=== PATIENT | male | born 1940 | race Caucasian/White ===

== ENCOUNTER 2016-09-04 09:35 | Emergency (ER) | payer OTHER ==
[~2016-09-04] VITALS: Ht 167.6 cm; Wt 71.7 kg
[~2016-09-04 09:35] MED LIST: AMLO5TAB2 PO; ASPI81TA27 PO; ATOR10TA52 PO; ERGO1CAP6 PO; PEN400T PO
[2016-09-04 11:36] VITALS: BP 127/71
== END 2016-09-04 12:05 | disposition home or self-care (01) ==
LOC: ER 09:52
DX: R33.9 Retention of urine, unspecified (principal); I11.0 Hypertensive heart disease with heart failure; I50.9 Heart failure, unspecified; J44.9 Chronic obstructive pulmonary disease, unspecified; Z86.73 Personal history of transient ischemic attack (TIA), and cerebral infarction without residual deficits; Z87.891 Personal history of nicotine dependence; Z98.61 Coronary angioplasty status
CPT/HCPCS: 51702; 81002

== ENCOUNTER 2017-12-08 12:26 | Emergency (ER) | payer OTHER ==
[~2017-12-08] VITALS: Ht 170.2 cm; Wt 72.6 kg
[~2017-12-08 12:26] MED LIST changes: +AML5T PO; -AMLO5TAB2 PO; +FURO20TA PO; +METO25TA62 PO; +TAMS0.4C36 PO
[2017-12-08 13:05] VITALS: BP 121/71
[2017-12-08 13:06] LABS: Urine WBC None Seen /hpf (0 - 3)
[2017-12-08 13:52] LABS: Urine Bacteria NONE SEEN /hpf (None Seen); Urine Blood TRACE /uL (Negative); Urine Specific Gravity 1.004 (1.001-1.035)
== END 2017-12-08 15:07 | disposition home or self-care (01) ==
LOC: ER 12:26 → EDBD 12:26 → ER 15:07
DX: R33.9 Retention of urine, unspecified (principal); I25.10 Atherosclerotic heart disease of native coronary artery without angina pectoris; I13.2 Hypertensive heart and chronic kidney disease with heart failure and with stage 5 chronic kidney disease, or end stage renal disease; I50.9 Heart failure, unspecified; N18.6 End stage renal disease; E78.5 Hyperlipidemia, unspecified; J44.9 Chronic obstructive pulmonary disease, unspecified; Z79.899 Other long term (current) drug therapy; Z98.61 Coronary angioplasty status; Z87.891 Personal history of nicotine dependence
CPT/HCPCS: 51702; 81001

== ENCOUNTER 2019-08-03 15:48 | Emergency (ER) | payer OTHER ==
[~2019-08-03] VITALS: Ht 167.6 cm; Wt 68.0 kg
[~2019-08-03 15:48] MED LIST changes: +ASPI-404 PO; -ASPI81TA27 PO; +FURO1TAB33 PO; -FURO20TA PO; -METO25TA62 PO; +METO25TA93 PO
[2019-08-03 16:27] LABS: Urine Bacteria NONE SEEN /hpf (None Seen); Urine Blood TRACE /uL (Negative); Urine Hyaline Cast FEW /lpf (0 - 2); Urine Specific Gravity 1.009 (1.001-1.035); Urine WBC <1 /hpf (0 - 3)
[2019-08-03 17:25] VITALS: BP 155/84
== END 2019-08-03 17:26 | disposition home or self-care (01) ==
LOC: ER 15:48
DX: R33.9 Retention of urine, unspecified (principal); J44.9 Chronic obstructive pulmonary disease, unspecified; E78.5 Hyperlipidemia, unspecified; E11.22 Type 2 diabetes mellitus with diabetic chronic kidney disease; I13.2 Hypertensive heart and chronic kidney disease with heart failure and with stage 5 chronic kidney disease, or end stage renal disease; N18.6 End stage renal disease; Z87.891 Personal history of nicotine dependence; Z98.61 Coronary angioplasty status
CPT/HCPCS: 51702; 81001

== ENCOUNTER 2020-07-10 08:58 | Inpatient (IN) | payer OTHER ==
[2020-07-10] VITALS (14 sets, daily range): BP systolic 90–134; BP diastolic 42–74
[~2020-07-10] VITALS: Ht 167.6 cm; Wt 71.6 kg
[~2020-07-10 08:58] MED LIST changes: -ASPI-404 PO; +ASPI-543 PO
[2020-07-10 09:42] LABS: Basophils # (auto) 0.1 10 ^3/uL (0-0.2); Basophils % (auto) 0.6 % (0.0-2.0); Eosinophils # (auto) 0 10 ^3/uL (0-0.8); Eosinophils % (auto) 0.1 % (0.0-7.0); Hematocrit 37.6 % (41.0-53.0); Hemoglobin 12.3 g/dL (13.5-17.5); Lymphocytes # (auto) 0.2 10 ^3/uL (0.4-5.4); Lymphocytes % (auto) 1.2 % (10.0-50.0); Mean Corpuscular Hemoglobin 30.6 pg (28.0-32.0); Mean Corpuscular Hgb Conc. 32.7 g/dL (32.0-36.0); Mean Corpuscular Volume 93.7 fL (80.0-100.0); Monocytes % (auto) 6.7 % (0.0-12.0); Neutrophils # (auto) 13.7 10 ^3/uL (1.6-8.6); Neutrophils % (auto) 91.4 % (37.0-80.0); Platelet Count (auto) 314 10^3/uL (140-450); Red Blood Cells 4.01 10^6/uL (4.5-5.90); Red Cell Distribution Width 15.8 % (11.8-14.3); White Blood Cell 14.9 10^3/uL (4.4-10.8)
[2020-07-10 09:57] LABS: INR 1.1 (0.9-1.15); Partial Thromboplastin Time 24.8 sec (23.0-31.2)
[2020-07-10 10:09] LABS: Albumin 3.6 g/dL (3.4-5.0); Calcium 8.9 mg/dL (8.5-10.1); Magnesium 2.1 mg/dL (1.6-2.6); Potassium 4.1 mmol/L (3.5-5.1)
[2020-07-10 10:16] LABS: BUN/Creatinine Ratio 6.4; Bilirubin, Total 0.4 mg/dL (0.2-1.0); Total Protein 7.6 g/dL (6.4-8.2)
[2020-07-10] MEDS ORDERED: ONDANSETRON HCL 4 MG/2 ML VIAL IV ONE (10:45)
[2020-07-10] MEDS ORDERED: MORPHINE SULFATE 4 MG/ML SYR/VIAL IV ONE (10:45)
[2020-07-10] MEDS ORDERED: ENOXAPARIN SOD 80 MG/0.8ML SYRINGE SC ONE (10:45)
[2020-07-10] MEDS ORDERED: HYDROcodone-ACET 5/325MG TAB PO PRN (12:15)
[2020-07-10] MEDS ORDERED: ONDANSETRON HCL 4 MG/2 ML VIAL IV PRN (12:15)
[2020-07-10] MEDS ORDERED: DOXYCYCLINE 100MG/250ML 250 ML IV ONE (12:15)
[2020-07-10] MEDS ORDERED: ACETAMINOPHEN 325 MG TAB PO PRN (12:15)
[2020-07-10] MEDS ORDERED: hydrALAZINE HCL 20 MG/ML VL IV PRN (12:15)
[2020-07-10] MEDS ORDERED: CLOPIDOGREL BISULFATE 75 MG TAB PO ONE (12:30)
[2020-07-10] MEDS ORDERED: HEPARIN DRIP/D5W 100UNITS/ML 250 ML IV SCH (12:30)
[2020-07-10 13:12] LABS: Free T4 (Free Thyroxine) 1.57 ng/dL (0.89-1.76)
[2020-07-10 13:13] LABS: Free T3 2.68 pg/mL (2.3-4.2)
[2020-07-10] MEDS ORDERED: IODIXANOL 320MG/ML 100ML BTL IV ONE ×3 (15:15→16:27)
[2020-07-10] MEDS ORDERED: LIDOCAINE 2%HCL (LOCAL ANESTH.) INJ 20ML MDV ONE (15:15)
[2020-07-10] MEDS ORDERED: MIDAZOLAM HCL 1MG/1ML-2 ML VIAL ONE (15:33)
[2020-07-10] MEDS ORDERED: fentaNYL CITRATE 100 MCG/2 ML VL ONE (15:33)
[2020-07-10] MEDS ORDERED: SODIUM CHL 0.9% 50 ML ONE (15:34)
[2020-07-10] MEDS ORDERED: ANGIOMAX 250 MG VIAL IV ONE (15:34)
[2020-07-10] MEDS ORDERED: VERAPAMIL 2.5MG/ML INJ 2ML VIAL IV ONE (16:05)
[2020-07-10] MEDS ORDERED: HEPARIN SODIUM (PORCINE) 5000 UNITS/ML 1ML VIAL ONE (16:05)
[2020-07-10] MEDS ORDERED: TICAGRELOR 90 MG TAB ONE (16:44)
[2020-07-10] MEDS ORDERED: CLOPIDOGREL 300 MG TAB ONE (16:48)
[2020-07-10] MEDS: ATORVASTATIN 20 MG TAB PO SCH (18:00)
[2020-07-10 19:09] LABS: Urine Bacteria NONE SEEN /hpf (None Seen); Urine Blood 2+ /uL (Negative); Urine Specific Gravity 1.017 (1.001-1.035); Urine WBC <1 /hpf (0 - 3)
[2020-07-10] MEDS ORDERED: TEMAZEPAM 15 MG CAP PO PRN (20:15)
[2020-07-10 20:33] LABS: INR 1.44 (0.9-1.15)
[2020-07-10 20:47] LABS: Partial Thromboplastin Time 71.4 sec (23.0-31.2)
[2020-07-11] VITALS (19 sets, daily range): BP systolic 84–121; BP diastolic 46–69
[2020-07-11 02:32] LABS: INR 1.2 (0.9-1.15); Partial Thromboplastin Time 39.8 sec (23.0-31.2)
[2020-07-11] MEDS ORDERED: SODIUM CHL 0.9% 1000 ML BAG XX ONE (07:00)
[2020-07-11 07:12] LABS: Basophils # (auto) 0.1 10 ^3/uL (0-0.2); Basophils % (auto) 0.7 % (0.0-2.0); Eosinophils # (auto) 0.2 10 ^3/uL (0-0.8); Eosinophils % (auto) 1.5 % (0.0-7.0); Hematocrit 32.4 % (41.0-53.0); Hemoglobin 10.7 g/dL (13.5-17.5); Lymphocytes # (auto) 1.1 10 ^3/uL (0.4-5.4); Lymphocytes % (auto) 10.3 % (10.0-50.0); Mean Corpuscular Hemoglobin 31.1 pg (28.0-32.0); Mean Corpuscular Hgb Conc. 33.1 g/dL (32.0-36.0); Monocytes # (auto) 1.4 10 ^3/uL (0-1.3); Monocytes % (auto) 12.7 % (0.0-12.0); Neutrophils # (auto) 8.3 10 ^3/uL (1.6-8.6); Neutrophils % (auto) 74.8 % (37.0-80.0); Nucleated Red Blood Cells % 0.1 %; Platelet Count (auto) 303 10^3/uL (140-450); Red Blood Cells 3.45 10^6/uL (4.5-5.90); Red Cell Distribution Width 15.8 % (11.8-14.3)
[2020-07-11 07:29] LABS: Albumin 3.1 g/dL (3.4-5.0); Calcium 8.9 mg/dL (8.5-10.1); Potassium 4.3 mmol/L (3.5-5.1)
[2020-07-11 07:36] LABS: BUN/Creatinine Ratio 7.1; Bilirubin, Total 0.4 mg/dL (0.2-1.0); Phosphorus 6.3 mg/dL (2.5-4.90); Total Protein 6.8 g/dL (6.4-8.2)
[2020-07-11] MEDS ORDERED: ASPirin 81 mg TAB PO SCH (10:00)
[2020-07-11] MEDS ORDERED: PIPERACILLIN-TAZOB 2.25GM 50 ML IV SCH (10:00)
[2020-07-11] MEDS: CLOPIDOGREL BISULFATE 75 MG TAB PO SCH (11:58)
[2020-07-11] MEDS ORDERED: METOPROLOL TARTRATE 1MG/1ML-5ML VIAL IV ONE (12:45)
[2020-07-11] MEDS ORDERED: AMIODARONE HCL 150 MG in D5W 5% 100 ML IV ONE (13:00)
[2020-07-11] MEDS ORDERED: FIN5T PO (13:10)
[2020-07-11] MEDS: FINASTERIDE 5 MG TAB PO SCH (14:18)
[2020-07-11] MEDS: CEFTRIAXONE SODIUM 2 GM in D5W 5% 50 ML IV SCH (14:18)
[2020-07-11] MEDS: CARVEDILOL 3.125 MG TAB PO SCH ×2 (17:23→21:41)
[2020-07-11] MEDS: ATORVASTATIN 20 MG TAB PO SCH (17:23)
[2020-07-11] MEDS ORDERED: TAMSULOSIN HYDROCHLORIDE 0.4 MG CAP PO SCH (18:00)
[2020-07-11] MEDS ORDERED: SODIUM CHLORIDE 0.9% 1,000 ML IV SCH (21:45)
[2020-07-12 05:00] VITALS: BP 94/63
[2020-07-12 05:37] LABS: Hematocrit 31.7 % (41.0-53.0); Hemoglobin 10.6 g/dL (13.5-17.5); Mean Corpuscular Hemoglobin 31.3 pg (28.0-32.0); Mean Corpuscular Hgb Conc. 33.3 g/dL (32.0-36.0); Mean Corpuscular Volume 94.1 fL (80.0-100.0); Platelet Count (auto) 298 10^3/uL (140-450); Red Blood Cells 3.37 10^6/uL (4.5-5.90); Red Cell Distribution Width 16.1 % (11.8-14.3); White Blood Cell 7.7 10^3/uL (4.4-10.8)
[2020-07-12 05:43] LABS: BUN/Creatinine Ratio 7.6; Calcium 8.2 mg/dL (8.5-10.1); Potassium 4.2 mmol/L (3.5-5.1)
[2020-07-12 06:03] LABS: Basophils % (manual) 0 (0.0-2.0); Blast Cells 0; Metamyelocytes % 0; Myelocytes % 0; Promyelocytes % 0; Reactive Lymphocytes 0
[2020-07-12 07:01] LABS: Band Neutrophils % (manual) 5; Eosinophils % (manual) 3 (0-7); Lymphocytes % (manual) 19 (10.0-50.0); Monocytes % (manual) 11 (0-12)
[2020-07-12] MEDS ORDERED: APIXABAN 2.5 MG TAB PO SCH (08:00)
[2020-07-12 08:47] VITALS: BP 102/65
[2020-07-12] MEDS: CARVEDILOL 3.125 MG TAB PO SCH (08:48)
[2020-07-12] MEDS: CLOPIDOGREL BISULFATE 75 MG TAB PO SCH (08:50)
[2020-07-12] MEDS: FINASTERIDE 5 MG TAB PO SCH (08:50)
[2020-07-12] MEDS: CEFTRIAXONE SODIUM 2 GM in D5W 5% 50 ML IV SCH (09:53)
[2020-07-12 13:00] VITALS: BP 103/70
[2020-07-12] MEDS ORDERED: CLOP75TA28 PO (14:26)
[2020-07-12] MEDS ORDERED: APIX2.5T PO (14:26)
[2020-07-12] MEDS ORDERED: FURO1TAB33 PO (14:26)
[2020-07-12] MEDS ORDERED: CAR3125T PO (14:26)
[2020-07-12] MEDS ORDERED: ATOR20TA50 PO (14:26)
[2020-07-14 15:22] LABS: Hepatitis A Ab IgM Negative; Hepatitis B Core IgM Negative; Hepatitis B Surface Antigen Negative (Negative); Hepatitis C Antibody Negative (Negative)
== END 2020-07-12 15:38 | disposition left against medical advice (07) | DRG 246 ==
LOC: ER 08:58 → EDBD 08:58 → TELE 12:40 → DOU IN ICU 14:00 → WEST WING 07-11 16:06
PROVIDERS: ADMIT Internal Medicine; ATTEND Internal Medicine
PROC: 027034Z Dilation of Coronary Artery, One Artery with Drug-eluting Intraluminal Device, Percutaneous Approach (ICD-10-PCS; principal; 2020-07-10)
PROC: 4A023N7 Measurement of Cardiac Sampling and Pressure, Left Heart, Percutaneous Approach (ICD-10-PCS; 2020-07-10)
PROC: B2111ZZ Fluoroscopy of Multiple Coronary Arteries using Low Osmolar Contrast (ICD-10-PCS; 2020-07-10)
PROC: B2151ZZ Fluoroscopy of Left Heart using Low Osmolar Contrast (ICD-10-PCS; 2020-07-10)
PROC: 5A1D70Z Performance of Urinary Filtration, Intermittent, Less than 6 Hours Per Day (ICD-10-PCS; 2020-07-10)
DX: I21.4 Non-ST elevation (NSTEMI) myocardial infarction (principal); N18.6 End stage renal disease; I13.2 Hypertensive heart and chronic kidney disease with heart failure and with stage 5 chronic kidney disease, or end stage renal disease; R78.81 Bacteremia; I48.92 Unspecified atrial flutter; I25.10 Atherosclerotic heart disease of native coronary artery without angina pectoris; I73.9 Peripheral vascular disease, unspecified; J44.9 Chronic obstructive pulmonary disease, unspecified; Z20.822 Contact with and (suspected) exposure to COVID-19; D63.8 Anemia in other chronic diseases classified elsewhere; Z53.29 Procedure and treatment not carried out because of patient's decision for other reasons; B96.89 Other specified bacterial agents as the cause of diseases classified elsewhere; E78.5 Hyperlipidemia, unspecified; I48.91 Unspecified atrial fibrillation; G47.00 Insomnia, unspecified; I50.9 Heart failure, unspecified; N40.0 Benign prostatic hyperplasia without lower urinary tract symptoms; Z80.0 Family history of malignant neoplasm of digestive organs; Z82.49 Family history of ischemic heart disease and other diseases of the circulatory system; Z87.891 Personal history of nicotine dependence; Z99.2 Dependence on renal dialysis; Z99.81 Dependence on supplemental oxygen; Z79.899 Other long term (current) drug therapy
CPT/HCPCS: 36415; 71045; 74176; 80048; 80053; 80061; 80074; 81001; 83605; 83735; 83880; 84100; 84439; 84443; 84481; 84484; 85007; 85025; 85027; 85610; 85730; 87040; 87077; 87081; 87086; 87186; 87426; 90935; 92928; 93005; 93458; 96365; 96372; 96375; 99152; 99153; 99291; C1874; G0378; J0696; J2250; J2405; J2543; J3490; J7060; Q9967

== ENCOUNTER 2020-09-09 06:13 | Day surgery (SDC) | payer OTHER ==
[~2020-09-09] VITALS: Ht 167.6 cm; Wt 72.6 kg
[~2020-09-09 06:13] MED LIST changes: -AML5T PO; +APIX2.5T PO; -ASPI-543 PO; -ATOR10TA52 PO; +ATOR20TA PO; +CAR3125T PO; +CARV12.544 PO; +CLOP75TA28 PO; -ERGO1CAP6 PO; +FINA5TAB4 PO; -FURO1TAB33 PO; +FURO20TA3 PO; -METO25TA93 PO; -PEN400T PO; +TRAZ50TA2 PO
[2020-09-09] MEDS ORDERED: IODIXANOL 320MG/ML 100ML BTL IV ONE (07:16)
[2020-09-09] MEDS ORDERED: LIDOCAINE 2%HCL (LOCAL ANESTH.) INJ 20ML MDV ONE (07:16)
[2020-09-09] MEDS ORDERED: ANGIOMAX 250 MG VIAL IV ONE (07:34)
[2020-09-09] MEDS ORDERED: VERAPAMIL 2.5MG/ML INJ 2ML VIAL IV ONE (07:34)
[2020-09-09] MEDS ORDERED: SODIUM CHL 0.9% 150 ML ONE (07:35)
[2020-09-09] MEDS ORDERED: NITROGLYCERIN 5MG/ML 10ML VIAL IV ONE (07:35)
[2020-09-09] MEDS ORDERED: fentaNYL CITRATE 100 MCG/2 ML VL ONE (07:35)
[2020-09-09] MEDS ORDERED: MIDAZOLAM HCL 1MG/1ML-2 ML VIAL ONE (07:35)
[2020-09-09] MEDS ORDERED: HYDROcodone-ACET 5/325MG TAB PO PRN (09:00)
[2020-09-09] MEDS ORDERED: ACETAMINOPHEN 500 MG TAB PO PRN (09:00)
== END 2020-09-09 11:58 | disposition home or self-care (01) ==
LOC: CATH 06:13
PROVIDERS: ATTEND Internal Medicine
DX: I25.10 Atherosclerotic heart disease of native coronary artery without angina pectoris (principal); E78.5 Hyperlipidemia, unspecified; I25.2 Old myocardial infarction; J43.9 Emphysema, unspecified; I13.2 Hypertensive heart and chronic kidney disease with heart failure and with stage 5 chronic kidney disease, or end stage renal disease; N18.6 End stage renal disease; Z20.822 Contact with and (suspected) exposure to COVID-19; Z98.890 Other specified postprocedural states; Z87.891 Personal history of nicotine dependence; Z79.899 Other long term (current) drug therapy; Z95.5 Presence of coronary angioplasty implant and graft; Z99.2 Dependence on renal dialysis
CPT/HCPCS: 92920; 93005; 93458; 93571; C1725; C1769; C1887; C1894; J0583; J1644; J2250; J3010; J3490; J7030; Q9967; U0003; 99152

== ENCOUNTER 2021-03-21 21:29 | Inpatient (IN) | payer MEDICARE, MEDICAID ==
[~2021-03-21] VITALS: Ht 172.7 cm; Wt 61.9 kg
[~2021-03-21 21:29] MED LIST changes: +ACET325T10 PO; +ALBU108A5 PO; +CALC667C PO; +CAR125T PO; -CAR3125T PO; -CARV12.544 PO; +HYDR-4833 PO; +IPRAAER6 INH; +METO25TA93 PO; +SERT50TA19 PO; +SODI10PA PO; -TRAZ50TA2 PO
[2021-03-21 23:43] LABS: Basophils # (auto) 0 10 ^3/uL (0-0.2); Basophils % (auto) 0.6 % (0.0-2.0); Eosinophils # (auto) 0 10 ^3/uL (0-0.8); Eosinophils % (auto) 0.6 % (0.0-7.0); Hematocrit 31.9 % (41.0-53.0); Hemoglobin 10.4 g/dL (13.5-17.5); Lymphocytes # (auto) 0.4 10 ^3/uL (0.4-5.4); Mean Corpuscular Hemoglobin 29.6 pg (28.0-32.0); Mean Corpuscular Hgb Conc. 32.5 g/dL (32.0-36.0); Mean Corpuscular Volume 90.9 fL (80.0-100.0); Monocytes # (auto) 0.8 10 ^3/uL (0-1.3); Monocytes % (auto) 11.9 % (0.0-12.0); Neutrophils # (auto) 5.6 10 ^3/uL (1.6-8.6); Neutrophils % (auto) 80.9 % (37.0-80.0); Nucleated Red Blood Cells % 0.4 %; Red Blood Cells 3.51 10^6/uL (4.5-5.90); Red Cell Distribution Width 16.8 % (11.8-14.3); White Blood Cell 6.9 10^3/uL (4.4-10.8)
[2021-03-22 00:03] LABS: Albumin 3.4 g/dL (3.4-5.0); Potassium 3.5 mmol/L (3.5-5.1)
[2021-03-22 00:07] LABS: BUN/Creatinine Ratio 8.1; Bilirubin, Total 1.4 mg/dL (0.2-1.0); Total Protein 5.9 g/dL (6.4-8.2)
[2021-03-22] MEDS ORDERED: ONDANSETRON HCL 4 MG/2 ML VIAL IV PRN (04:00)
[2021-03-22] MEDS ORDERED: DOCUSATE SOD 100 MG CAP PO PRN (04:00)
[2021-03-22] MEDS ORDERED: ACETAMINOPHEN 325 MG TAB PO PRN (04:00)
[2021-03-22] MEDS ORDERED: NITROGLYCERIN 0.4 MG SL TAB SL PRN (04:45)
[2021-03-22] MEDS ORDERED: MORPHINE SULFATE INJECTION 2 MG/ML SYRG IV PRN (04:45)
[2021-03-22] MEDS ORDERED: ALBUTEROL SULF HFA 90MCG INH 200DOSE IN SCH (06:00)
[2021-03-22] MEDS ORDERED: IPRATROPIUM-ALBUTEROL 20mCg/100mCg INHALER IN SCH (06:00)
[2021-03-22] MEDS ORDERED: CALCIUM ACETATE 667 MG CAP PO SCH (06:00)
[2021-03-22] MEDS: SODIUM CHLOR 0.9% PF (SALINE LOCK) 10ML VIAL/SYR IV SCH ×2 (06:20→14:15)
[2021-03-22] MEDS: B-COMPLEX W/ C & FOLIC ACID(NEPHROVITE TAB) PO SCH (09:39)
[2021-03-22] MEDS: FAMOTIDINE (10MG/ML) 2ML VL IV SCH (09:39)
[2021-03-22] MEDS: ZINC SULFATE 220mg CAP or TAB PO SCH (09:40)
[2021-03-22] MEDS: ASCORBIC ACID 500 MG TAB PO SCH (09:40)
[2021-03-22] MEDS: FUROSEMIDE 20 MG TAB PO SCH (09:40)
[2021-03-22] MEDS: CARVEDILOL 12.5 MG TAB PO SCH ×2 (09:40→22:00)
[2021-03-22] MEDS: TAMSULOSIN HYDROCHLORIDE 0.4 MG CAP PO SCH (09:41)
[2021-03-22] MEDS: FINASTERIDE 5 MG TAB PO SCH (09:41)
[2021-03-22] MEDS: APIXABAN 2.5 MG TAB PO SCH (09:41)
[2021-03-22] MEDS: HYDROcodone-ACET 5/325MG TAB PO PRN ×2 (09:41→16:03)
[2021-03-22] MEDS ORDERED: IPRATROPIUM BROM 0.5 MG/2.5ML INH SOL NEB PRN (14:15)
[2021-03-22] MEDS ORDERED: ALBUTEROL SULF 2.5 MG/0.5ML(0.5%) NEB SOLN NEB PRN (14:15)
[2021-03-22] MEDS: CALCIUM ACETATE 667 MG CAP PO SCH (15:08)
[2021-03-22 20:22] VITALS: BP 121/67
[2021-03-22 21:48] VITALS: BP 125/61
[2021-03-23] MEDS: TAMSULOSIN HYDROCHLORIDE 0.4 MG CAP PO SCH ×3 (00:26→22:40)
[2021-03-23] MEDS: SODIUM CHLOR 0.9% PF (SALINE LOCK) 10ML VIAL/SYR IV SCH ×4 (00:26→22:43)
[2021-03-23] MEDS: APIXABAN 2.5 MG TAB PO SCH ×3 (00:26→22:41)
[2021-03-23] MEDS: ATORVASTATIN 20 MG TAB PO SCH ×2 (00:27→22:41)
[2021-03-23] MEDS: CALCIUM ACETATE 667 MG CAP PO SCH ×4 (00:27→22:40)
[2021-03-23] MEDS: ASCORBIC ACID 500 MG TAB PO SCH ×3 (00:27→22:40)
[2021-03-23 05:14] VITALS: BP 129/67
[2021-03-23 07:58] LABS: Basophils # (auto) 0 10 ^3/uL (0-0.2); Basophils % (auto) 0.3 % (0.0-2.0); Eosinophils # (auto) 0.1 10 ^3/uL (0-0.8); Hematocrit 29.1 % (41.0-53.0); Hemoglobin 9.3 g/dL (13.5-17.5); Lymphocytes # (auto) 0.4 10 ^3/uL (0.4-5.4); Lymphocytes % (auto) 7.6 % (10.0-50.0); Mean Corpuscular Hemoglobin 29.4 pg (28.0-32.0); Mean Corpuscular Volume 91.8 fL (80.0-100.0); Monocytes # (auto) 0.5 10 ^3/uL (0-1.3); Neutrophils # (auto) 3.7 10 ^3/uL (1.6-8.6); Neutrophils % (auto) 78.1 % (37.0-80.0); Nucleated Red Blood Cells % 0.1 %; Red Blood Cells 3.17 10^6/uL (4.5-5.90); Red Cell Distribution Width 16.9 % (11.8-14.3); White Blood Cell 4.7 10^3/uL (4.4-10.8)
[2021-03-23 08:05] LABS: Albumin 2.8 g/dL (3.4-5.0); Calcium 8.8 mg/dL (8.5-10.1); Potassium 3.1 mmol/L (3.5-5.1)
[2021-03-23 08:10] LABS: BUN/Creatinine Ratio 9.2; Phosphorus 4.2 mg/dL (2.5-4.90)
[2021-03-23 09:00] VITALS: BP 104/63
[2021-03-23] MEDS: HYDROcodone-ACET 5/325MG TAB PO PRN ×2 (10:19→22:58)
[2021-03-23] MEDS: ZINC SULFATE 220mg CAP or TAB PO SCH (10:19)
[2021-03-23] MEDS: FAMOTIDINE (10MG/ML) 2ML VL IV SCH (10:19)
[2021-03-23] MEDS: CARVEDILOL 12.5 MG TAB PO SCH ×2 (10:20→22:42)
[2021-03-23] MEDS: FINASTERIDE 5 MG TAB PO SCH (10:21)
[2021-03-23] MEDS: B-COMPLEX W/ C & FOLIC ACID(NEPHROVITE TAB) PO SCH (10:21)
[2021-03-23] MEDS: FUROSEMIDE 20 MG TAB PO SCH (10:21)
[2021-03-23 13:26] VITALS: BP 128/74
[2021-03-23] MEDS ORDERED: POTASSIUM CHL 10 Meq TABLET PO ONE (17:30)
[2021-03-23 22:00] VITALS: BP 117/58
[2021-03-24 05:00] VITALS: BP 110/68
[2021-03-24] MEDS: CALCIUM ACETATE 667 MG CAP PO SCH ×3 (06:40→22:51)
[2021-03-24] MEDS: SODIUM CHLOR 0.9% PF (SALINE LOCK) 10ML VIAL/SYR IV SCH ×3 (06:41→22:52)
[2021-03-24] MEDS: HYDROcodone-ACET 5/325MG TAB PO PRN ×2 (06:41→22:53)
[2021-03-24 06:43] LABS: Hematocrit 29.3 % (41.0-53.0); Hemoglobin 9.5 g/dL (13.5-17.5)
[2021-03-24] MEDS ORDERED: SODIUM CHL 0.9% 1000 ML BAG XX ONE (07:00)
[2021-03-24 08:00] VITALS: BP 125/82
[2021-03-24] MEDS: TAMSULOSIN HYDROCHLORIDE 0.4 MG CAP PO SCH ×2 (09:37→22:51)
[2021-03-24] MEDS: FINASTERIDE 5 MG TAB PO SCH (09:37)
[2021-03-24] MEDS: APIXABAN 2.5 MG TAB PO SCH ×2 (09:37→22:51)
[2021-03-24] MEDS: B-COMPLEX W/ C & FOLIC ACID(NEPHROVITE TAB) PO SCH (09:37)
[2021-03-24] MEDS: ZINC SULFATE 220mg CAP or TAB PO SCH (09:37)
[2021-03-24] MEDS: CARVEDILOL 12.5 MG TAB PO SCH ×2 (09:38→22:52)
[2021-03-24] MEDS: ASCORBIC ACID 500 MG TAB PO SCH ×2 (09:38→22:51)
[2021-03-24] MEDS: FUROSEMIDE 20 MG TAB PO SCH (09:38)
[2021-03-24] MEDS: FAMOTIDINE (10MG/ML) 2ML VL IV SCH (09:38)
[2021-03-24 10:29] LABS: % Iron Saturation 43.5 % (20-55)
[2021-03-24 12:00] VITALS: BP 103/60
[2021-03-24 17:00] VITALS: BP 101/48
[2021-03-24] MEDS ORDERED: EPOETIN ALFA-EPBX 10,000 UNIT/1ML VIAL SC ONE (21:00)
[2021-03-24 22:00] VITALS: BP 118/67
[2021-03-24] MEDS: ATORVASTATIN 20 MG TAB PO SCH (22:51)
[2021-03-25 05:00] VITALS: BP 96/53
[2021-03-25] MEDS ORDERED: SODIUM CHL 0.9% 1000 ML BAG XX ONE (07:00)
[2021-03-25] MEDS: CALCIUM ACETATE 667 MG CAP PO SCH ×3 (07:03→20:56)
[2021-03-25] MEDS: SODIUM CHLOR 0.9% PF (SALINE LOCK) 10ML VIAL/SYR IV SCH ×3 (07:05→20:55)
[2021-03-25 07:23] LABS: Hematocrit 27.2 % (41.0-53.0); Hemoglobin 8.9 g/dL (13.5-17.5)
[2021-03-25] MEDS: B-COMPLEX W/ C & FOLIC ACID(NEPHROVITE TAB) PO SCH (10:00)
[2021-03-25] MEDS: ZINC SULFATE 220mg CAP or TAB PO SCH (11:07)
[2021-03-25] MEDS: FAMOTIDINE (10MG/ML) 2ML VL IV SCH (11:07)
[2021-03-25] MEDS: ASCORBIC ACID 500 MG TAB PO SCH (11:07)
[2021-03-25] MEDS: APIXABAN 2.5 MG TAB PO SCH ×2 (11:07→20:55)
[2021-03-25] MEDS: FINASTERIDE 5 MG TAB PO SCH (11:08)
[2021-03-25] MEDS: CARVEDILOL 12.5 MG TAB PO SCH ×2 (11:10→11:15)
[2021-03-25] MEDS: TAMSULOSIN HYDROCHLORIDE 0.4 MG CAP PO SCH (11:11)
[2021-03-25] MEDS: HYDROcodone-ACET 5/325MG TAB PO PRN (12:20)
[2021-03-25] MEDS: FUROSEMIDE 20 MG TAB PO SCH (12:27)
[2021-03-25 12:29] VITALS: BP 79/43
[2021-03-25] MEDS ORDERED: ALBUMIN 25% 100 ML IV ONE (13:45)
[2021-03-25 15:37] VITALS: BP 88/40
[2021-03-25 18:50] VITALS: BP 101/52
[2021-03-25] MEDS: ATORVASTATIN 20 MG TAB PO SCH (20:55)
[2021-03-25] MEDS ORDERED: EPOETIN ALFA-EPBX 10,000 UNIT/1ML VIAL SC ONE (21:00)
[2021-03-26] MEDS ORDERED: HALOPERIDOL LACTATE 5 MG/ML INJ VIAL IM PRN ×2 (00:45→01:30)
[2021-03-26] MEDS: HYDROcodone-ACET 5/325MG TAB PO PRN ×3 (05:43→23:02)
[2021-03-26] MEDS: CALCIUM ACETATE 667 MG CAP PO SCH ×3 (05:44→22:28)
[2021-03-26] MEDS: SODIUM CHLOR 0.9% PF (SALINE LOCK) 10ML VIAL/SYR IV SCH ×3 (05:44→22:29)
[2021-03-26 05:49] VITALS: BP 123/60
[2021-03-26] MEDS: FAMOTIDINE (10MG/ML) 2ML VL IV SCH (10:15)
[2021-03-26] MEDS: APIXABAN 2.5 MG TAB PO SCH ×2 (10:15→22:29)
[2021-03-26] MEDS: FINASTERIDE 5 MG TAB PO SCH (10:15)
[2021-03-26] MEDS: B-COMPLEX W/ C & FOLIC ACID(NEPHROVITE TAB) PO SCH (10:15)
[2021-03-26 11:12] VITALS: BP 89/49
[2021-03-26 12:59] LABS: Hepatitis C Antibody Negative (Negative)
[2021-03-26 14:05] VITALS: BP 90/50
[2021-03-26 17:39] VITALS: BP 126/76
[2021-03-26 22:00] VITALS: BP 118/62
[2021-03-26] MEDS: ATORVASTATIN 20 MG TAB PO SCH (22:29)
[2021-03-27] MEDS: HYDROcodone-ACET 5/325MG TAB PO PRN ×3 (03:02→23:34)
[2021-03-27 05:00] VITALS: BP 112/57
[2021-03-27] MEDS: SODIUM CHLOR 0.9% PF (SALINE LOCK) 10ML VIAL/SYR IV SCH ×3 (06:37→22:44)
[2021-03-27] MEDS: CALCIUM ACETATE 667 MG CAP PO SCH ×3 (06:37→21:31)
[2021-03-27 09:00] VITALS: BP 135/65
[2021-03-27] MEDS: FINASTERIDE 5 MG TAB PO SCH (10:00)
[2021-03-27] MEDS: B-COMPLEX W/ C & FOLIC ACID(NEPHROVITE TAB) PO SCH (10:00)
[2021-03-27] MEDS: APIXABAN 2.5 MG TAB PO SCH ×2 (10:00→21:31)
[2021-03-27] MEDS: FAMOTIDINE (10MG/ML) 2ML VL IV SCH (10:00)
[2021-03-27 13:00] VITALS: BP 133/69
[2021-03-27] MEDS ORDERED: IPRATROPIUM BROM 0.5 MG/2.5ML INH SOL NEB PRN (15:45)
[2021-03-27] MEDS ORDERED: ALBUTEROL SULF 2.5 MG/0.5ML(0.5%) NEB SOLN NEB PRN (15:45)
[2021-03-27] MEDS ORDERED: SERTRALINE HCL 50 MG TAB PO ONE (16:00)
[2021-03-27 17:00] VITALS: BP 111/54
[2021-03-27 18:44] LABS: Hematocrit 30.3 % (41.0-53.0); Hemoglobin 9.6 g/dL (13.5-17.5); Mean Corpuscular Hemoglobin 29.3 pg (28.0-32.0); Mean Corpuscular Hgb Conc. 31.7 g/dL (32.0-36.0); Mean Corpuscular Volume 92.3 fL (80.0-100.0); Red Blood Cells 3.29 10^6/uL (4.5-5.90); Red Cell Distribution Width 18.3 % (11.8-14.3); White Blood Cell 5.8 10^3/uL (4.4-10.8)
[2021-03-27 18:49] LABS: Basophils % (manual) 0 (0.0-2.0); Blast Cells 0; Metamyelocytes % 0; Myelocytes % 0; Promyelocytes % 0; Reactive Lymphocytes 0
[2021-03-27 18:59] LABS: BUN/Creatinine Ratio 8.6; Calcium 8.9 mg/dL (8.5-10.1); Potassium 3.7 mmol/L (3.5-5.1)
[2021-03-27 19:06] LABS: Band Neutrophils % (manual) 9; Eosinophils % (manual) 5 (0-7); Lymphocytes % (manual) 8 (10.0-50.0); Monocytes % (manual) 13 (0-12)
[2021-03-27] MEDS ORDERED: EPOETIN ALFA-EPBX 10,000 UNIT/1ML VIAL SC ONE (21:00)
[2021-03-27] MEDS: ATORVASTATIN 20 MG TAB PO SCH (21:31)
[2021-03-27] MEDS: CARVEDILOL 3.125 MG TAB PO SCH (21:36)
[2021-03-27 22:05] VITALS: BP 121/65
[2021-03-27 22:57] VITALS: BP 125/61
[2021-03-28 05:25] VITALS: BP 108/70
[2021-03-28] MEDS: CALCIUM ACETATE 667 MG CAP PO SCH ×3 (06:19→21:56)
[2021-03-28] MEDS: SODIUM CHLOR 0.9% PF (SALINE LOCK) 10ML VIAL/SYR IV SCH ×3 (06:20→22:36)
[2021-03-28] MEDS ORDERED: SODIUM CHL 0.9% 1000 ML BAG XX ONE (07:00)
[2021-03-28] MEDS: HYDROcodone-ACET 5/325MG TAB PO PRN (08:03)
[2021-03-28 09:00] VITALS: BP 140/74
[2021-03-28 09:33] LABS: Hemoglobin 8.8 g/dL (13.5-17.5)
[2021-03-28] MEDS: SERTRALINE HCL 50 MG TAB PO SCH (10:45)
[2021-03-28 12:58] LABS: % Iron Saturation 51.8 % (20-55)
[2021-03-28 13:00] VITALS: BP 100/44
[2021-03-28] MEDS: CLOPIDOGREL BISULFATE 75 MG TAB PO SCH (13:11)
[2021-03-28] MEDS: FINASTERIDE 5 MG TAB PO SCH (13:29)
[2021-03-28] MEDS: CARVEDILOL 3.125 MG TAB PO SCH ×2 (13:31→22:36)
[2021-03-28] MEDS: B-COMPLEX W/ C & FOLIC ACID(NEPHROVITE TAB) PO SCH (13:31)
[2021-03-28] MEDS: APIXABAN 2.5 MG TAB PO SCH ×2 (13:32→21:56)
[2021-03-28 17:00] VITALS: BP 137/69
[2021-03-28] MEDS ORDERED: EPOETIN ALFA-EPBX 10,000 UNIT/1ML VIAL SC ONE (21:00)
[2021-03-28] MEDS: ATORVASTATIN 20 MG TAB PO SCH (21:56)
[2021-03-28 22:00] VITALS: BP 107/66
[2021-03-29] MEDS: LORazepam 0.5 MG TAB PO PRN ×2 (01:26→16:32)
[2021-03-29 05:34] VITALS: BP 116/72
[2021-03-29] MEDS: CALCIUM ACETATE 667 MG CAP PO SCH ×3 (05:46→21:06)
[2021-03-29] MEDS: SODIUM CHLOR 0.9% PF (SALINE LOCK) 10ML VIAL/SYR IV SCH ×3 (05:46→21:08)
[2021-03-29 09:26] VITALS: BP 123/75
[2021-03-29] MEDS: APIXABAN 2.5 MG TAB PO SCH ×2 (10:00→21:06)
[2021-03-29] MEDS: CLOPIDOGREL BISULFATE 75 MG TAB PO SCH (10:00)
[2021-03-29] MEDS: CARVEDILOL 3.125 MG TAB PO SCH ×2 (10:00→21:07)
[2021-03-29] MEDS: FINASTERIDE 5 MG TAB PO SCH (10:00)
[2021-03-29] MEDS: SERTRALINE HCL 50 MG TAB PO SCH (10:00)
[2021-03-29] MEDS: B-COMPLEX W/ C & FOLIC ACID(NEPHROVITE TAB) PO SCH (10:00)
[2021-03-29] MEDS: HYDROcodone-ACET 5/325MG TAB PO PRN ×2 (12:44→23:22)
[2021-03-29 13:00] VITALS: BP 126/71
[2021-03-29 16:56] VITALS: BP 106/65
[2021-03-29] MEDS: ATORVASTATIN 20 MG TAB PO SCH (21:06)
[2021-03-29 21:47] VITALS: BP 102/50
[2021-03-30] MEDS: HYDROcodone-ACET 5/325MG TAB PO PRN ×3 (03:18→20:11)
[2021-03-30 05:00] VITALS: BP 100/56
[2021-03-30] MEDS: CALCIUM ACETATE 667 MG CAP PO SCH ×3 (05:41→22:08)
[2021-03-30] MEDS: SODIUM CHLOR 0.9% PF (SALINE LOCK) 10ML VIAL/SYR IV SCH ×3 (05:41→22:07)
[2021-03-30 07:35] LABS: Calcium 9.1 mg/dL (8.5-10.1); Potassium 3.8 mmol/L (3.5-5.1)
[2021-03-30 09:00] VITALS: BP 107/51
[2021-03-30] MEDS ORDERED: TAM04C PO (10:18)
[2021-03-30] MEDS: B-COMPLEX W/ C & FOLIC ACID(NEPHROVITE TAB) PO SCH (10:24)
[2021-03-30] MEDS: CARVEDILOL 3.125 MG TAB PO SCH ×2 (10:24→22:00)
[2021-03-30] MEDS: APIXABAN 2.5 MG TAB PO SCH ×2 (10:24→22:08)
[2021-03-30] MEDS: FINASTERIDE 5 MG TAB PO SCH (10:25)
[2021-03-30] MEDS: SERTRALINE HCL 50 MG TAB PO SCH (10:25)
[2021-03-30 13:00] VITALS: BP 96/54
[2021-03-30 16:30] VITALS: BP 155/81
[2021-03-30 17:00] VITALS: BP 109/63
[2021-03-30] MEDS ORDERED: TAMSULOSIN HYDROCHLORIDE 0.4 MG CAP PO SCH (18:00)
[2021-03-30 22:00] VITALS: BP 114/66
[2021-03-30] MEDS: ATORVASTATIN 20 MG TAB PO SCH (22:07)
[2021-03-31 05:00] VITALS: BP 121/55
[2021-03-31] MEDS: SODIUM CHLOR 0.9% PF (SALINE LOCK) 10ML VIAL/SYR IV SCH ×2 (05:08→14:40)
[2021-03-31] MEDS: CALCIUM ACETATE 667 MG CAP PO SCH ×2 (05:09→13:11)
[2021-03-31] MEDS: HYDROcodone-ACET 5/325MG TAB PO PRN ×2 (05:09→09:40)
[2021-03-31 09:00] VITALS: BP 96/40
[2021-03-31] MEDS: FINASTERIDE 5 MG TAB PO SCH (09:34)
[2021-03-31] MEDS: SERTRALINE HCL 50 MG TAB PO SCH (09:34)
[2021-03-31] MEDS: B-COMPLEX W/ C & FOLIC ACID(NEPHROVITE TAB) PO SCH (09:34)
[2021-03-31] MEDS: APIXABAN 2.5 MG TAB PO SCH (09:34)
[2021-03-31] MEDS: CARVEDILOL 3.125 MG TAB PO SCH (09:34)
[2021-03-31 10:55] VITALS: BP 100/45
[2021-03-31 13:00] VITALS: BP 107/54
== END 2021-03-31 14:30 | DRG 291 ==
LOC: ER 21:31 → OVERFLOW 03-22 04:34 → WEST WING 03-22 17:04 → CENTRAL 03-25 20:41 → WEST WING 03-30 21:24
PROVIDERS: ADMIT Nurse Practitioner Family; ATTEND Internal Medicine
PROC: 5A1D70Z Performance of Urinary Filtration, Intermittent, Less than 6 Hours Per Day (ICD-10-PCS; principal; 2021-03-25)
PROC: 5A1D70Z Performance of Urinary Filtration, Intermittent, Less than 6 Hours Per Day (ICD-10-PCS; 2021-03-28)
PROC: 5A1D70Z Performance of Urinary Filtration, Intermittent, Less than 6 Hours Per Day (ICD-10-PCS; 2021-03-31)
DX: I13.2 Hypertensive heart and chronic kidney disease with heart failure and with stage 5 chronic kidney disease, or end stage renal disease (principal); N18.6 End stage renal disease; I50.33 Acute on chronic diastolic (congestive) heart failure; J15.0 Pneumonia due to Klebsiella pneumoniae; J96.01 Acute respiratory failure with hypoxia; J44.1 Chronic obstructive pulmonary disease with (acute) exacerbation; F05 Delirium due to known physiological condition; D68.69 Other thrombophilia; R62.7 Adult failure to thrive; Z99.2 Dependence on renal dialysis; I25.10 Atherosclerotic heart disease of native coronary artery without angina pectoris; I49.5 Sick sinus syndrome; E78.5 Hyperlipidemia, unspecified; E78.00 Pure hypercholesterolemia, unspecified; I95.9 Hypotension, unspecified; Z20.822 Contact with and (suspected) exposure to COVID-19; R73.9 Hyperglycemia, unspecified; N40.1 Benign prostatic hyperplasia with lower urinary tract symptoms; R33.8 Other retention of urine; D63.1 Anemia in chronic kidney disease; R58 Hemorrhage, not elsewhere classified; I48.0 Paroxysmal atrial fibrillation; D64.9 Anemia, unspecified; I25.2 Old myocardial infarction; I73.9 Peripheral vascular disease, unspecified; Z79.899 Other long term (current) drug therapy; Z80.0 Family history of malignant neoplasm of digestive organs; Z82.49 Family history of ischemic heart disease and other diseases of the circulatory system; Z86.74 Personal history of sudden cardiac arrest; Z87.891 Personal history of nicotine dependence; Z95.0 Presence of cardiac pacemaker
CPT/HCPCS: 36415; 71045; 80048; 80053; 82728; 82962; 83540; 83550; 84100; 84132; 85007; 85014; 85018; 85025; 85027; 86803; 87081; 87340; 87426; 90935; 93005; 94640; 96374; 97116; 97163; 97530; G0378; J1642; J3490; P9047